=== PATIENT | female | born 1955 | race Caucasian/White ===

== ENCOUNTER 2019-01-09 22:12 | Emergency (ER) | payer MEDICARE, MEDICAID ==
[~2019-01-09] VITALS: Ht 157.5 cm; Wt 52.2 kg
--- NOTE | 2019-01-09 22:35 | NUR ---
PT BIB [facility] WITH A C/O DIZZINESS. PT IS AA&O X4. PT AMBULATED WITH A STEADY GAIT FROM THE RESCUE GURNEY TO THE ER GURBARSTOW. PT WAS PLACED ON THE MONITOR AND CONTINUOUS PULSE OX.
--- NOTE | 2019-01-09 22:54 | NUR ---
20G IV STARTED IN LAC
[2019-01-09 22:56] LABS: BASOPHILS % (AUTO) 0.3 % (0.0-2.0); EOSINOPHILS % (AUTO) 0.5 % (0.0-6.0); HEMATOCRIT 39 % (33-45); HEMOGLOBIN 13.4 g/dL (11.5-14.8); LYMPHOCYTES # (AUTO) 1.7 /CMM (0.8-4.8); LYMPHOCYTES % (AUTO) 27.1 % (20.0-44.0); MEAN CORPUSCULAR HGB CONC 34 g/dl (31.0-36.0); MEAN CORPUSCULAR VOLUME 89 fL (82-100); MONOCYTES # (AUTO) 0.5 /CMM (0.1-1.30); MONOCYTES % (AUTO) 8.2 % (2.0-12.0); NEUTROPHILS # (AUTO) 3.9 /CMM (1.8-8.9); NEUTROPHILS % (AUTO) 63.9 % (43.0-81.0); PLATELET COUNT (AUTO) 226 /CMM (150-450); RED BLOOD CELL COUNT(AUTO) 4.41 MIL/uL (4.0-5.2); WHITE BLOOD COUNT (AUTO) 6.1 K/uL (4.3-11.0)
[2019-01-09] MEDS ORDERED: MECLIZINE HCL 12.5 MG TABLET PO ONE (23:00)
[2019-01-09 23:11] LABS: CALCIUM, SERUM 9.9 mg/dL (8.5-10.1); CARBON DIOXIDE 28 mmol/L (21-32); CHLORIDE 105 mmol/L (98-107); CREATININE 0.7 mg/dL (0.6-1.3); GLUCOSE 164 mg/dL (74-106); POTASSIUM 4.1 mmol/L (3.5-5.1); SODIUM SERUM 137 mmol/L (136-145); UREA NITROGEN, BLOOD 14 mg/dL (7-18)
[2019-01-09] MEDS ORDERED: MECLIZINE HCL 12.5 MG TABLET ONE (23:16)
[2019-01-09 23:18] LABS: ALANINE AMINOTRANSFERASE 21 U/L (12-78); ALBUMIN 3.7 g/dL (3.4-5.0); ALKALINE PHOSPHATASE 97 U/L (46-116); ASPARTATE AMINOTRANSFERASE 16 U/L (15-37); BILIRUBIN,DIRECT 0.1 mg/dL (0.0-0.2); BILIRUBIN,TOTAL 0.3 mg/dL (0.2-1.0); TOTAL PROTEIN, SERUM 7.5 g/dL (6.4-8.2)
--- NOTE | 2019-01-09 23:26 | NUR ---
PT AMBULATED TO THE BATHROOM AND A URINE SAMPLE WAS OBTAINED. SAMPLE SENT TO LAB.
[2019-01-09] MEDS ORDERED: SIMETHICONE 80 MG TAB.CHEW PO ONE (23:30)
[2019-01-09] MEDS ORDERED: SIMETHICONE 80 MG TAB.CHEW ONE (23:41)
--- NOTE | 2019-01-09 23:45 | NUR ---
IV removed. Catheter intact and site benign. Pressure and 4x4 applied to site. No bleeding noted. Patient discharged to home in stable condition. Written and verbal after care instructions given. Patient verbalizes understanding of instruction AND RX. PT REC'D A [facility]. VSS. NAD NOTED. PT AMBULATED OUT TO THE LOBBY WITH A STEADY GAIT.
[2019-01-09 23:49] LABS: APPEARANCE,URINE Clear (CLEAR); BILIRUBIN,URINE Negative (NEGATIVE); BLOOD, URINE Negative Ery/uL (NEGATIVE); COLOR,URINE Yellow (YELLOW); KETONES,URINE Negative (NEGATIVE); LEUKOCYTE ESTERASE ,URINE Negative (NEGATIVE); NITRITE, URINE Negative (NEGATIVE); PROTEIN,URINE Negative (NEGATIVE); UGLUCOSE Negative (NEGATIVE); UROBILINOGEN,URINE 0.2 EU/dL (0.2)
[2019-01-10 00:24] VITALS: BP 127/58
== END 2019-01-09 23:45 | disposition home or self-care (01) ==
LOC: ER 22:17
DX: R42 Dizziness and giddiness (principal); I10 Essential (primary) hypertension; I48.91 Unspecified atrial fibrillation; E11.9 Type 2 diabetes mellitus without complications; R51 Headache
CPT/HCPCS: 36415; 70450; 71045; 80048; 80076; 81001; 82962; 84484; 85025; 85730; 93005; 99284; J8597; 81000-TC